=== PATIENT | female | born 1990 | race American Indian/Alaskan Native ===

== ENCOUNTER 2018-08-03 16:37 | Emergency (ER) | payer MEDICAID, OTHER ==
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
[2018-08-03 17:05] VITALS: BP 120/69
[2018-08-03 18:19] LABS: HCG Qualitative,Urine Positive (Negative)
[2018-08-03 18:21] LABS: Bacteria,Urine 1+ /HPF (Negative); Bilirubin,Urine NEG (Negative); Blood,Urine NEG (Negative); Color,Urine Yellow (Yellow); Mucus,Urine FEW /HPF; Protein,Urine <15 mg/dL mg/dL (Negative)
--- NOTE | 2018-08-03 20:16 | Emergency Department Report ---
ED General Adult HPI - General Chief complaint: Abdominal Pain Stated complaint: VOMIT Time Seen by Provider: 08/03/18 17:00 Source: patient Mode of arrival: Ambulatory Limitations: No Limitations - History of Present Illness Initial comments: Patient is 27-year-old female 3 para 2. Patient presented to the emergency room complaining of diffuse abdominal pain associated with cramping and nausea and vomiting. Patient denied any fever, vaginal bleeding or vaginal discharge. Patient stated that her last menstrual period was end of May. - Related Data Previous Rx's Medication Instructions Recorded Last Taken Type Ibuprofen [Motrin] 800 mg PO Q8HR PRN #15 tablet 01/25/18 Unknown Rx Allergies Allergy/AdvReac Type Severity Reaction Status Date / Time No Known Allergies Allergy Verified 08/03/18 16:41 ED Review of Systems ROS: Stated complaint: VOMIT Other details as noted in HPI Comment: All other systems reviewed and negative Constitutional: denies: chills, fever Respiratory: denies: cough, orthopnea, shortness of breath, SOB with exertion, SOB at rest, wheezing Cardiovascular: denies: chest pain, palpitations Gastrointestinal: abdominal pain, nausea, vomiting, diarrhea. denies: constipation, hematemesis, melena, hematochezia Musculoskeletal: denies: back pain Neurological: denies: headache ED Past Medical Hx - Past Medical History Previous Medical History?: No - Surgical History Hx Cholecystectomy: Yes Additional Surgical History: right arm - Social History Smoking Status: Never Smoker Substance Use Type: None - Medications Home Medications: Home Medications Medication Instructions Recorded Confirmed Last Taken Type Ibuprofen [Motrin] 800 mg PO Q8HR PRN #15 tablet 01/25/18 Unknown Rx ED Physical Exam - General Limitations: No Limitations General appearance: alert, in no apparent distress - Head Head exam: Present: atraumatic - Eye Eye exam: Present: normal appearance - ENT ENT exam: Present: normal exam, normal orophraynx, mucous membranes moist - Neck Neck exam: Present: normal inspection, full ROM. Absent: tenderness, meningismus, lymphadenopathy, thyromegaly - Respiratory Respiratory exam: Present: normal lung sounds bilaterally - Cardiovascular Cardiovascular Exam: Present: regular rate, normal rhythm, normal heart sounds - GI/Abdominal GI/Abdominal exam: Present: soft, normal bowel sounds. Absent: distended, tenderness, guarding, rebound, rigid, organomegaly, mass, bruit, pulsatile mass, hernia - Extremities Exam Extremities exam: Present: normal inspection, full ROM, normal capillary refill - Back Exam Back exam: Present: normal inspection, full ROM. Absent: tenderness, CVA tenderness (R), CVA tenderness (L), muscle spasm, paraspinal tenderness, vertebral tenderness - Neurological Exam Neurological exam: Present: alert, oriented X3, CN II-XII intact, normal gait - Skin Skin exam: Present: warm, intact, normal color ED Course Vital Signs 08/03/18 17:01 Temperature 98.7 F Pulse Rate 91 H Respiratory 16 Rate Blood Pressure 120/69 O2 Sat by Pulse 100 Oximetry ED Medical Decision Making - Lab Data Result diagrams: 08/03/18 20:25 - Medical Decision Making Patient is 27-year-old female 3 para 2. Patient presented to the emergency room complaining of diffuse abdominal pain associated with cramping and nausea and vomiting. Patient denied any fever, vaginal bleeding or vaginal discharge. Patient stated that her last menstrual period was end of May. Patient urine test is positive. No active vomiting noticed in the ER. Labs ordered but patient does not want to wait and she stated that she has to take care of her kids. Advised patient to follow-up with my [facility] for further management. Critical care attestation.: If time is entered above; I have spent that time in minutes in the direct care o f this critically ill patient, excluding procedure time. ED Disposition Clinical Impression: , Nausea and vomiting Disposition: -01 TO HOME OR SELFCARE Is pt being admited?: No Condition: Stable Instructions: Abdominal Pain (ED), (ED), Acute Nausea and Vomiting (ED) Referrals: DUDLEY LUDWIG MD [Primary Care Provider] - 3-5 Days [facility] [Provider Group] - 3-5 Days
[2018-08-03 20:45] LABS: Basophils # (Auto) 0.1 K/mm3 (0.0-0.1); Basophils % (Auto) 0.7 % (0.0-1.8); Eosinophils # (Auto) 0.1 K/mm3 (0.0-0.4); Eosinophils % (Auto) 0.9 % (0.0-4.3); Hematocrit 36.8 % (30.3-42.9); Hemoglobin 12.7 gm/dl (10.1-14.3); Lymphocytes # (Auto) 2.3 K/mm3 (1.2-5.4); Lymphocytes % (Auto) 29.9 % (13.4-35.0); Mean Corpuscular HGB Conc 35 % (30-34); Mean Corpuscular Volume 85 fl (79-97); Monocytes # (Auto) 0.6 K/mm3 (0.0-0.8); Monocytes % (Auto) 7.5 % (0.0-7.3); Platelet Count 197 K/mm3 (140-440); Red Blood Count 4.33 M/mm3 (3.65-5.03); Red Cell Distribution Width 12.8 % (13.2-15.2)
[2018-08-03 21:14] LABS: BUN/Creatinine Ratio 9; Blood Urea Nitrogen 6 mg/dL (7-17); Calcium 8.7 mg/dL (8.4-10.2); Hemolysis Index 1
== END 2018-08-03 21:41 | disposition home or self-care (01) ==
LOC: ED 16:37
DX: O21.0 Mild hyperemesis gravidarum (principal); Z90.49 Acquired absence of other specified parts of digestive tract; Z3A.01 Less than 8 weeks gestation of pregnancy
CPT/HCPCS: 36415; 80048; 81001; 81025; 84702; 85025

== ENCOUNTER 2019-08-23 17:56 | Emergency (ER) | payer MEDICAID ==
[2019-08-23 18:06] VITALS: BP 109/75
== END 2019-08-23 19:08 | disposition left against medical advice (07) ==
LOC: ED 17:56
DX: R49.9 Unspecified voice and resonance disorder (principal)
CPT/HCPCS: 99282

== ENCOUNTER 2020-09-08 08:21 | Emergency (ER) | payer MEDICAID ==
[2020-09-08 10:00] VITALS: BP 132/68
[2020-09-08] MEDS ORDERED: KETOROLAC 30 MG/1 ML INJ IM ONE (10:05)
[2020-09-08] MEDS ORDERED: TETANUS,DIPH,PERTUSS(ACELL) VACCINE 0.5 ML SYRINGE IM ONE (10:05)
[2020-09-08] MEDS ORDERED: cephALEXin 500 MG CAP PO ONE (10:05)
[2020-09-08] MEDS ORDERED: NEOMY 3.5 MG/BACIT 400 UNITS/POLY B 5000 UNITS/GM OINT PACKET TP ONE (10:05)
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
== END 2020-09-08 11:01 | disposition home or self-care (01) ==
LOC: ED 08:21
DX: T21.21XA Burn of second degree of chest wall, initial encounter (principal); T31.0 Burns involving less than 10% of body surface; F17.200 Nicotine dependence, unspecified, uncomplicated; Z90.49 Acquired absence of other specified parts of digestive tract; Z79.1 Long term (current) use of non-steroidal anti-inflammatories (NSAID); Z79.899 Other long term (current) drug therapy; X08.8XXA Exposure to other specified smoke, fire and flames, initial encounter; Y93.89 Activity, other specified; Y92.89 Other specified places as the place of occurrence of the external cause; Y99.8 Other external cause status
CPT/HCPCS: 16020; 90471; 90715; 96372; 99282; A6250; J1885

== ENCOUNTER 2021-02-06 10:50 | Emergency (ER) | payer MEDICAID ==
--- NOTE | 2021-02-06 11:23 | Emergency Department Report ---
ED Female HPI - General Chief complaint: Urogenital-Female Stated complaint: YEAST INFECTION Time Seen by Provider: 02/06/21 11:13 Source: patient Mode of arrival: Ambulatory Limitations: No Limitations - History of Present Illness Initial comments: Chief complaint: [my vagina] hurts. HPI: This is a 30-year-old female with history BMI 51 who presents with vaginal irritation. She does not have any discharge. She not have any pelvic pain or vomiting. Her PCP prescribed cephalexin and metronidazole. She has been on these medications for 5 days without any relief. She is concerned for yeast infection. that she has been wearing tight fitting clothes without underwear. She has not been sexually active. MD Complaint: other (Vaginal irritation) -: Gradual, days(s) (5 days) Location: labia Severity: mild Quality: burning Consistency: constant Improves with: none Worsens with: none Associated Symptoms: denies other symptoms - Related Data Previous Rx's Medication Instructions Recorded Last Taken Type Ibuprofen [Motrin] 800 mg PO Q8HR PRN #15 tablet 01/25/18 Unknown Rx Ondansetron [Zofran Odt] 4 mg PO Q8HR PRN #14 tab.rapdis 08/03/18 Unknown Rx Mupirocin [Bactroban 2%] 1 applic TP TID #1 tube 09/08/20 Unknown Rx Naproxen 500 mg PO BID #20 tablet 09/08/20 Unknown Rx cephALEXin [Keflex] 500 mg PO Q8HR 5 Days cap 09/08/20 Unknown Rx Fluconazole [Diflucan TAB] 200 mg PO ONCE #1 tablet 02/06/21 Unknown Rx Miconazole/Cleanser 17 On Wipe 1 each VG DAILY #1 kit 02/06/21 Unknown Rx [Monistat 7 Combination Pack] Allergies Allergy/AdvReac Type Severity Reaction Status Date / Time No Known Allergies Allergy Verified 08/03/18 16:41 ED Review of Systems ROS: Stated complaint: YEAST INFECTION Other details as noted in HPI Constitutional: denies: chills, fever, malaise Gastrointestinal: denies: abdominal pain, nausea, vomiting Genitourinary: denies: urgency, dysuria, frequency, hematuria, discharge Musculoskeletal: denies: back pain ED Past Medical Hx - Past Medical History Previous Medical History?: No - Surgical History Past Surgical History?: Yes Hx Cholecystectomy: Yes Additional Surgical History: right arm - Social History Smoking Status: Current Every Day Smoker Substance Use Type: Alcohol - Medications Home Medications: Home Medications Medication Instructions Recorded Confirmed Last Taken Type Ibuprofen [Motrin] 800 mg PO Q8HR PRN #15 tablet 01/25/18 Unknown Rx Ondansetron [Zofran Odt] 4 mg PO Q8HR PRN #14 tab.rapdis 08/03/18 Unknown Rx Mupirocin [Bactroban 2%] 1 applic TP TID #1 tube 09/08/20 Unknown Rx Naproxen 500 mg PO BID #20 tablet 09/08/20 Unknown Rx cephALEXin [Keflex] 500 mg PO Q8HR 5 Days cap 09/08/20 Unknown Rx Fluconazole [Diflucan TAB] 200 mg PO ONCE #1 tablet 02/06/21 Unknown Rx Miconazole/Cleanser 17 On Wipe 1 each VG DAILY #1 kit 02/06/21 Unknown Rx [Monistat 7 Combination Pack] ED Physical Exam - General Limitations: No Limitations General appearance: alert, in no apparent distress - ENT ENT exam: Present: mucous membranes moist - Neck Neck exam: Present: normal inspection, full ROM - Respiratory Respiratory exam: Absent: respiratory distress - GI/Abdominal GI/Abdominal exam: Present: soft. Absent: distended, guarding - Neurological Exam Neurological exam: Present: alert, oriented X3 - Psychiatric Psychiatric exam: Present: normal affect, normal mood ED Medical Decision Making - Medical Decision Making Clinical impression: Candidal vaginitis prescribed fluconazole Monistat Critical care attestation.: If time is entered above; I have spent that time in minutes in the direct care of this critically ill patient, excluding procedure time. ED Disposition Clinical Impression: Candidal vaginitis Disposition: 01 HOME / SELF CARE / HOMELESS Is pt being admited?: No Does the pt Need Aspirin: No Condition: Stable Instructions: Vaginal Yeast Infection, Adult, Vaginitis, [id number] Prescriptions: Fluconazole [Diflucan TAB] 200 mg PO ONCE #1 tablet Miconazole/Cleanser 17 On Wipe [Monistat 7 Combination Pack] 1 each VG DAILY #1 kit Referrals: GILSON FREEMAN MD [Staff Physician] - 3-5 Days
== END 2021-02-06 12:12 | disposition home or self-care (01) ==
LOC: ED 10:50
DX: B37.3 Candidiasis of vulva and vagina (principal); F17.210 Nicotine dependence, cigarettes, uncomplicated
CPT/HCPCS: 99282

== ENCOUNTER 2021-09-09 12:09 | Emergency (ER) | payer MEDICAID ==
[2021-09-09 13:09] LABS: Basophils # (Auto) 0.1 K/mm3 (0.0-0.1); Basophils % (Auto) 1.6 % (0.0-1.8); Eosinophils # (Auto) 0.1 K/mm3 (0.0-0.4); Eosinophils % (Auto) 1.9 % (0.0-4.3); Hematocrit 37.8 % (30.3-42.9); Hemoglobin 12.2 gm/dl (10.1-14.3); Lymphocytes # (Auto) 0.9 K/mm3 (1.2-5.4); Lymphocytes % (Auto) 17.4 % (13.4-35.0); Mean Corpuscular HGB Conc 32 % (30-34); Mean Corpuscular Volume 83 fl (79-97); Monocytes # (Auto) 0.4 K/mm3 (0.0-0.8); Monocytes % (Auto) 7.9 % (0.0-7.3); Platelet Count 218 K/mm3 (140-440); Red Blood Count 4.58 M/mm3 (3.65-5.03); Red Cell Distribution Width 12.9 % (13.2-15.2)
[2021-09-09 13:22] LABS: Bilirubin,Urine NEG (Negative); Blood,Urine NEG (Negative); Color,Urine Yellow (Yellow); HCG Qualitative,Urine Negative (Negative); Protein,Urine <15 mg/dL mg/dL (Negative)
[2021-09-09 13:32] LABS: Alanine Aminotransferase 13 units/L (7-56); Albumin 4.1 g/dL (3.9-5); BUN/Creatinine Ratio 10; Blood Urea Nitrogen 10 mg/dL (7-17); Calcium 9.2 mg/dL (8.4-10.2); Hemolysis Index 2
[2021-09-09 13:33] LABS: Mucus,Urine FEW /HPF
[2021-09-09 15:29] VITALS: BP 110/74
[2021-09-09] MEDS ORDERED: predniSONE 20 MG TAB PO ONE (15:44)
[2021-09-09] MEDS ORDERED: ONDANSETRON 4 MG ODT TAB PO ONE (15:44)
[2021-09-09] MEDS ORDERED: KETOROLAC 10 MG TAB PO ONE (15:44)
[2021-09-09] MEDS ORDERED: DICYCLOMINE 20 MG/2 ML INJ IM ONE (15:44)
--- NOTE | 2021-09-09 17:20 | Emergency Department Report ---
ED Abdominal Pain HPI - General Chief Complaint: Abdominal Pain Stated Complaint: POSSIBLE STOMACH VIRUS Time Seen by Provider: 09/09/21 15:27 Source: patient Mode of arrival: Ambulatory Limitations: No Limitations - History of Present Illness Initial Comments: 30 yo black female with no pmh presents to ed for evaluation of 3 day history of n/v/d and abdominal pain and cramping. She states that her and her child have had the same symptoms. She states that n/v have improved significantly but she is still having diarrhea several times daily with abdominal cramping. She denies fever and vaginal discharge. MD Complaint: abdominal pain -: Gradual, days(s) (3) Location: epigastric Radiation: none Migration to: no migration Severity: mild Severity scale (0 -10): 3 Quality: cramping Consistency: intermittent Context: sick contacts Associated Symptoms: nausea, vomiting, diarrhea. denies: fever, chills, dysuria, hematemesis, hematochezia, melena, hematuria, anorexia, syncope - Related Data LMP (females 10-50): last week Previous Rx's Medication Instructions Recorded Last Taken Type Ibuprofen [Motrin] 800 mg PO Q8HR PRN #15 tablet 01/25/18 Unknown Rx Ondansetron [Zofran Odt] 4 mg PO Q8HR PRN #14 tab.rapdis 08/03/18 Unknown Rx Mupirocin [Bactroban 2%] 1 applic TP TID #1 tube 09/08/20 Unknown Rx Naproxen 500 mg PO BID #20 tablet 09/08/20 Unknown Rx cephALEXin [Keflex] 500 mg PO Q8HR 5 Days cap 09/08/20 Unknown Rx Fluconazole [Diflucan TAB] 200 mg PO ONCE #1 tablet 02/06/21 Unknown Rx Miconazole/Cleanser 17 On Wipe 1 each VG DAILY #1 kit 02/06/21 Unknown Rx [Monistat 7 Combination Pack] Dicyclomine [Bentyl] 20 mg PO QID PRN #30 tablet 09/09/21 Unknown Rx Ondansetron [Zofran Odt] 4 mg PO Q8HR PRN #12 tab.rapdis 09/09/21 Unknown Rx Allergies Allergy/AdvReac Type Severity Reaction Status Date / Time No Known Allergies Allergy Verified 08/03/18 16:41 ED Review of Systems ROS: Stated complaint: POSSIBLE STOMACH VIRUS Other details as noted in HPI Comment: All other systems reviewed and negative Constitutional: denies: chills, fever Eyes: denies: vision change ENT: denies: congestion Respiratory: denies: shortness of breath, SOB with exertion, SOB at rest, st [place], wheezing Cardiovascular: denies: chest pain, palpitations, dyspnea on exertion Gastrointestinal: abdominal pain, nausea, vomiting, diarrhea. denies: hematemesis, melena, hematochezia Genitourinary: denies: urgency, dysuria, frequency, hematuria, discharge Musculoskeletal: denies: back pain Skin: denies: rash, lesions Neurological: denies: headache, weakness Hematological/Lymphatic: denies: easy bleeding ED Past Medical Hx - Surgical History Hx Cholecystectomy: Yes Additional Surgical History: right arm - Social History Smoking Status: Current Every Day Smoker Substance Use Type: Alcohol - Medications Home Medications: Home Medications Medication Instructions Recorded Confirmed Last Taken Type Ibuprofen [Motrin] 800 mg PO Q8HR PRN #15 tablet 01/25/18 Unknown Rx Ondansetron [Zofran Odt] 4 mg PO Q8HR PRN #14 tab.rapdis 08/03/18 Unknown Rx Mupirocin [Bactroban 2%] 1 applic TP TID #1 tube 09/08/20 Unknown Rx Naproxen 500 mg PO BID #20 tablet 09/08/20 Unknown Rx cephALEXin [Keflex] 500 mg PO Q8HR 5 Days cap 09/08/20 Unknown Rx Fluconazole [Diflucan TAB] 200 mg PO ONCE #1 tablet 02/06/21 Unknown Rx Miconazole/Cleanser 17 On Wipe 1 each VG DAILY #1 kit 02/06/21 Unknown Rx [Monistat 7 Combination Pack] Dicyclomine [Bentyl] 20 mg PO QID PRN #30 tablet 09/09/21 Unknown Rx Ondansetron [Zofran Odt] 4 mg PO Q8HR PRN #12 tab.rapdis 09/09/21 Unknown Rx ED Physical Exam - General Limitations: No Limitations General appearance: alert, in no apparent distress - Head Head exam: Present: atraumatic, normocephalic - Eye Eye exam: Present: normal appearance. Absent: conjunctival injection, periorbital swelling, periorbital tenderness - Neck Neck exam: Present: normal inspection, full ROM. Absent: tenderness, lymphadenopathy - Respiratory Respiratory exam: Present: normal lung sounds bilaterally. Absent: respiratory distress, wheezes, rales, rhonchi, stridor, chest wall tenderness - Cardiovascular Cardiovascular Exam: Present: regular rate, normal heart sounds - GI/Abdominal GI/Abdominal exam: Present: soft, normal bowel sounds. Absent: distended, tenderness, guarding, rebound, rigid - Extremities Exam Extremities exam: Present: normal inspection, normal capillary refill. Absent: pedal edema, joint swelling, calf tenderness - Back Exam Back exam: Present: normal inspection. Absent: CVA tenderness (R), CVA tenderness (L), vertebral tenderness - Neurological Exam Neurological exam: Present: alert, oriented X3, normal gait - Psychiatric Psychiatric exam: Present: normal affect, normal mood - Skin Skin exam: Present: warm, dry, intact, normal color ED Course Vital Signs 09/09/21 09/09/21 09/09/21 12:25 15:28 17:06 Temperature 98.9 F 98.7 F Pulse Rate 93 H 88 Respiratory 16 16 14 Rate Blood Pressure 134/62 110/74 [Left] O2 Sat by Pulse 96 100 Oximetry ED Medical Decision Making - Lab Data Result diagrams: 09/09/21 12:56 09/09/21 12:56 - Medical Decision Making 30 yo black female with no pmh presents to ed for evaluation of 3 day history of n/v/d and abdominal pain and cramping. She states that her and her child have had the same symptoms. She states that n/v have improved significantly but she is still having diarrhea several times daily with abdominal cramping. She denies fever and vaginal discharge. Physical exam unremarkable. Labs and ua without any gross abnormalities. Symptoms improved after medications. Patient will be discharged home with zofran and bentyl to use as needed. She is advised to follow up with her pcp if no improvement or worsening symptoms or return to Ed as needed. She verbalized understanding of and agreement with plan of care. Critical care attestation.: If time is entered above; I have spent that time in minutes in the direct care of this critically ill patient, excluding procedure time. ED Disposition Clinical Impression: Gastroenteritis Disposition: HOME / SELF CARE / HOMELESS Is pt being admited?: No Does the pt Need Aspirin: No Condition: Stable Instructions: Viral Gastroenteritis, Adult, [id number], Food Choices to Help Relieve Diarrhea, Adult, Abdominal Pain (ED) Additional Instructions: Take medications as prescribed. Increase intake of noncaffeinated fluids. Follow-up with primary care provider if no improvement or worsening symptoms. Return to the emergency department as needed. Prescriptions: Dicyclomine [Bentyl] 20 mg PO QID PRN #30 tablet PRN Reason: Pain , Severe (7-10) Ondansetron [Zofran Odt] 4 mg PO Q8HR PRN #12 tab.rapdis PRN Reason: Nausea And Vomiting Referrals: JAYSON JOLLY MD [Staff Physician] - 3-5 Days Forms: Work/School Release Form(ED) Time of Disposition: 17:22
== END 2021-09-09 17:49 | disposition home or self-care (01) ==
LOC: ED 12:09
DX: K52.9 Noninfective gastroenteritis and colitis, unspecified (principal); Z90.49 Acquired absence of other specified parts of digestive tract; F17.200 Nicotine dependence, unspecified, uncomplicated; Z79.899 Other long term (current) drug therapy
CPT/HCPCS: 36415; 80053; 81001; 81025; 83690; 85025; 96372; 99283; J0500; J3490; Q0162